=== PATIENT | female | born 2000 | race Caucasian/White ===

== ENCOUNTER 2023-06-03 10:13 | Emergency (ER) | payer OTHER ==
--- NOTE | 2023-06-03 10:39 | ED Physician Documentation ---
PD HPI LOWER EXT INJURY - Stated complaint Stated Complaint: DOG BITE - Chief complaint Chief Complaint: Laceration - History obtained from History obtained from: Patient - History of Present Illness PD HPI LOW EXT INJURY LOCATION: Left, Lower leg Type of injury: Other (The patient states she was jogging with her dog and another dog in the road came up and bit her in the leg. She came immediately here. The consular officer of the other dog was not visibly present.) Where injury occurred: Street Timing - onset: How many minutes ago (30) Timing - details: Abrupt onset Worsened by: Moving, Palpating Associated symptoms: No: Weakness, Numbness Similar symptoms before: Has not had sx before Review of Systems Neurologic: denies: Focal weakness, Numbness PD PAST MEDICAL HISTORY - Past Medical History Past Medical History: No - Present Medications Home Medications: Ambulatory Orders Medication Instructions Recorded Confirmed Amox/Clav 875/125 [Augmentin] 1 each PO Q12H #10 tablet 06/03/23 Control 1 tab ORAL DAILY 06/03/23 06/03/23 - Allergies Allergies/Adverse Reactions: Allergies Allergy/AdvReac Type Severity Reaction Status Date / Time No Known Drug Allergies Allergy Verified 06/03/23 10:18 - Living Situation Living Situation: reports: With family Living Arrangement: reports: At home, Other (She lives in [place] and is just here on would be for several days. She states she is traveling/moving to [place] in 5 days.) PD ED PE NORMAL - Vitals Vital signs reviewed: Yes - General General: Alert and oriented X 3, Well developed/nourished - Derm Derm: Normal color, Warm and dry - Extremities Extremities: Other (1 cm triangle shaped laceration in the medial left lower leg consistent with dog bite. There is some abrasion surrounding and some tenderness of the soft tissue.) - Neuro Neuro: Alert and oriented X 3, No motor deficit, No sensory deficit Results - Vitals Vitals: Vital Signs - 24 hr 06/03/23 06/03/23 10:18 11:22 Temperature 37 C Heart Rate 90 73 Respiratory 16 16 Rate Blood Pressure 123/71 123/87 H O2 Saturation 100 100 Oxygen O2 Source Room air Procedures - Laceration (location) left lower leg Length in cm: 1 Wound type: Curved, Into subcut fat, Clean Neurovascular status: Sensory intact, Motor intact Anesthesia: Lidocaine 1% Wound preparation: Irrigated copiously NS, Wound explored, To the base Skin layer closure: Nylon, Interrupted, Size #-0 - enter number (4), Sutures - enter # (2) Other: Patient tolerated well, No complications, Neurovascular intact, Dressing applied, Tetanus UTD PD Medical Decision Making - ED course Complexity details: considered differential (The patient is concerned about i nfection and rabies. Nursing staff here reported to [facility]. The patient's parents went to the area where the incident occurred and found some residents there who believe they know the consular officer of the dog. This address was given to the [facility]'s office.), d/w patient ED course: The donor floor technician's office was going to try to identify the consular officer of the dog. The bel ieve they had the address. The patient was concerned about rabies. I did suggest options of waiting to see if the dog is identified and is up-to-date on vaccines and there is a window of commonly excepted to 72 hours before initiating the vaccine if needed. This may allow for preempting any need for vaccinations. Alternatively if the patient is concerned, I did offer the potential for first vaccine here and then to see if any further information developed. I did convey that there is a low risk for rabies and cats and dogs here in [facility]. At this point she opted for delaying vaccination and seeing what information the animal control discovers. Otherwise concern for regular infection is reasonably high and she did agree on oral antibiotics of Augmentin to reduce the chance for that. She did have a small open wound that was still bleeding mildly. I think this would do better with loose suturing and she agreed. 2 sutures were placed without any complications and the bleeding stopped. It was irrigated out copiously by nursing staff prior. Departure - Departure Disposition: 01 Home, Self Care Clinical Impression: Dog bite of lower leg Condition: Stable Record reviewed to determine appropriate education?: Yes Instructions: ED Bite Dog Prescriptions: Amox/Clav 875/125 [Augmentin] 1 each PO Q12H #10 tablet Comments: It is okay to wash and shower. Clean off the wound twice a day with soap and water, or peroxide and water. Apply some antibiotic ointment to it to keep it moist. Also to watch for signs of infection such as purulence, redness or in creasing pain. Return to your primary care or the ER at the specified time for suture removal. Suture removal 8 to 10 days. Tylenol or ibuprofen if needed for pains. Regular activity as tolerated based on discomfort. For dog bites, we do worry about infections related to germs in the mouth and typically advocates antibiotic twice daily for the next 4 to 5 days to reduce the chance of infection. I wrote for Augmentin and sent the prescription to [facility] pharmacy in [place]. Regarding the concern for rabies, there is a low prevalence in [facility] and if the dog can be identified, then animal control can find out on the vaccine status. Typically I would suggest holding off on the rabies vaccines until we find out if the dog is at risk. If there is no risk/low risk then typically we would not advocate the rabies vaccines. If its not clear whether at risk or not able to identify the dog, then the rabies vaccine can be initiated within even 3 days and still be effective. You can return to the ER here at any point if the series needs to be initiated. Discharge Date/Time: 06/03/23 11:34
[2023-06-03] MEDS: AMOX/CLAV 875 MG/125 MG TABLET PO STA (10:46)
[2023-06-03 11:23] VITALS: BP 123/87
== END 2023-06-03 11:34 | disposition home or self-care (01) ==
LOC: ED 10:13
DX: S81.812A Laceration without foreign body, left lower leg, initial encounter (principal); W54.0XXA Bitten by dog, initial encounter; Y93.02 Activity, running
CPT/HCPCS: 12001; 99281; A9270